=== PATIENT | female | born 1975 | race Caucasian/White ===

== ENCOUNTER → 2018-04-22 | Outpatient (CLI) | payer BC ==
--- NOTE | 2018-04-25 11:17 | MM ---
Reason for exam: screening (asymptomatic). Last mammogram was performed 2 years and 5 months ago. History: Took hormonal contraceptives for 11 years beginning at age 15. Physical Findings: A clinical breast exam by your physician is recommended on an annual basis and results should be correlated with mammographic findings. MG 3D Screening Mammo W/Cad Bilateral CC and MLO view(s) were taken. Prior study comparison: November 28, 2015, bilateral MG screening mammo w CAD. August 06, 2014, bilateral MG screening mammo w CAD. There are scattered fibroglandular densities. No significant changes when compared with prior studies. ASSESSMENT: Benign, BI-RAD 2 RECOMMENDATION: Routine screening mammogram of both breasts in 1 year.
== END | disposition home or self-care (01) ==
LOC: RADMAMWWP 14:38
PROVIDERS: ATTEND Obstetrics & Gynecology
DX: Z12.31 Encounter for screening mammogram for malignant neoplasm of breast (principal)
CPT/HCPCS: 77063; 77067

== ENCOUNTER → 2020-02-14 | Outpatient (CLI) | payer MEDICAID ==
--- NOTE | 2020-02-16 10:27 | MM ---
Reason for exam: screening (asymptomatic). Last mammogram was performed 1 year and 10 months ago. History: Took hormonal contraceptives for 11 years beginning at age 15. Physical Findings: A clinical breast exam by your physician is recommended on an annual basis and results should be correlated with mammographic findings. MG 3D Screening Mammo W/Cad Bilateral CC and MLO view(s) were taken. Prior study comparison: April 22, 2018, bilateral MG 3d screening mammo w/cad. November 28, 2015, bilateral MG screening mammo w CAD. There are scattered fibroglandular densities. Dermal calcifiations upper inner quadrant left breast. No significant changes when compared with prior studies. ASSESSMENT: Negative, BI-RAD 1 RECOMMENDATION: Routine screening mammogram of both breasts in 1 year.
== END | disposition home or self-care (01) ==
LOC: RADMAMWWP 15:26
PROVIDERS: ATTEND Obstetrics & Gynecology
DX: Z12.31 Encounter for screening mammogram for malignant neoplasm of breast (principal)
CPT/HCPCS: 77063; 77067

== ENCOUNTER → 2020-12-31 | Outpatient (CLI) | payer MEDICAID ==
[2020-12-31 08:46] VITALS: BP 110/71; PULSE 60; RESP 16; TEMP 98
--- NOTE | 2020-12-31 09:53 | P.HPOB ---
History of Present Illness H&P Date: 12/31/20 Chief Complaint: The patient is here for her routine gynecologic exam. This is a 45-year-old with an LMP of 12/06/2020 whose is status post vasectomy. The patient is here to establish with this office. She is without gynecologic complaints. Menstrual periods are regular every month. It has been about 1 year since her last pelvic exam. She has experienced some soreness in the left anterior subaxillary region, just lateral of the left breast. This seems to be mostly around the time of her menstrual periods, but can occur any time during the month. Review of Systems The patient's weight has been stable over the last year. She denies respiratory, cardiac, or G.I. problems. 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 - Past Family History Mother Additional Family Medical History / Comment(s): Osteoporosis. Maternal grandmother had an [place]. Father Family Medical History: No Reported History Additional Family Medical History / Comment(s): Paternal grandmother had CVA. Medications and Allergies Home Medications Medication Instructions Recorded Confirmed Type No Known Home Medications 09/29/15 09/29/15 History Allergies Allergy/AdvReac Type Severity Reaction Status Date / Time No Known Allergies Allergy Verified 12/31/20 08:36 Exam Vital Signs Temp Pulse Resp BP Pulse Ox 12/31/20 08:37 98 F 60 16 110/71 99 Intake and Output 12/30/20 12/31/20 12/31/20 22:59 06:59 14:59 Other: Weight 86.636 kg height 5 feet 3 inches, weight 191 pounds, BMI 33.8. This is a well-developed well-nourished female who is alert and oriented times 3 in no acute distress. HEENT: Within normal limits. NECK: Supple without mass or thyromegaly. CHEST AND LUNGS: Clear to auscultation. HEART: Regular rate and rhythm. BREASTS: Are without mass or discharge. AXILLARY EXAM: Negative for adenopathy. There is minimal left anterior subaxillary tenderness without palpable mass. BACK: Negative for CVA tenderness. ABDOMEN: Soft, nontender, without palpable masses. PELVIC EXAM: Normal external genitalia. Cervix and vagina appear normal. There is a small amount of dark blood mixed with small amount of menstrual type blood at the cervix. The patient states she feels like her menstrual period is about to start. There is no unusual discharge. There is no evidence of prolapse. The uterus is midposition, nongravid size and nontender. There are no palpable adnexal masses or tenderness. RECTAL EXAM: negative for mass or tenderness and is negative for occult blood. EXTREMITIES: Nontender. IMPRESSION: 1. 45-year-old female with normal gynecologic exam whose is status post vasectomy. 2. Subaxillary soreness per the patient with minimal tenderness and no evidence of adenopathy. Possible tail of breast soreness. PLAN: 1. Pap smear cotest was performed. 2. Self breast awareness was discussed with the patient. 3. Screening mammogram was done on 02/14/2020 and was benign. She will repeat this after 1 year. The order slip was given to the patient for this. 4. Osteoporosis prevention was discussed. I have stressed the importance of adequate calcium, vitamin D and regular exercise. Recommended amounts of calcium and vitamin D were also discussed. Consider bone density testing in a pproximately age 53 because of her mother's history of osteoporosis. 5. I recommended that she try to decrease caffeine intake since she states she does drink a fair amount of coffee in the morning to see if this helps with her soreness just lateral to the left breast. 6. She has completed her Covid vaccination series. 7. She was advised to return in one year for her annual well woman exam and as needed.
== END ==
LOC: WWCWWP 08:29
PROVIDERS: ATTEND Obstetrics & Gynecology
DX: Z01.419 Encounter for gynecological examination (general) (routine) without abnormal findings (principal); N64.4 Mastodynia; E78.5 Hyperlipidemia, unspecified

== ENCOUNTER → 2021-05-14 | Outpatient (CLI) | payer MEDICAID ==
--- NOTE | 2021-05-16 10:45 | MM ---
Reason for exam: screening (asymptomatic). Last mammogram was performed 1 year and 3 months ago. History: Took hormonal contraceptives for 11 years beginning at age 15. Physical Findings: A clinical breast exam by your physician is recommended on an annual basis and results should be correlated with mammographic findings. MG 3D Screening Mammo W/Cad Bilateral CC and MLO view(s) were taken. Prior study comparison: February 14, 2020, bilateral MG 3d screening mammo w/cad. April 22, 2018, bilateral MG 3d screening mammo w/cad. There are scattered fibroglandular densities. Stable benign calcifications. There is no discrete abnormality. No significant changes when compared with prior studies. ASSESSMENT: Benign, BI-RAD 2 RECOMMENDATION: Routine screening mammogram of both breasts in 1 year.
== END | disposition home or self-care (01) ==
LOC: RADMAMWWP 15:37
PROVIDERS: ATTEND Obstetrics & Gynecology
DX: Z12.31 Encounter for screening mammogram for malignant neoplasm of breast (principal)
CPT/HCPCS: 77063; 77067

== ENCOUNTER → 2021-06-16 | Outpatient (CLI) | payer MEDICAID, OTHER | END | disposition home or self-care (01) | LOC: LABWHC1 08:21 | PROVIDERS: ATTEND Emergency Medicine | DX: Z20.822 Contact with and (suspected) exposure to COVID-19 (principal) | CPT/HCPCS: 87635 ==

== ENCOUNTER → 2022-02-17 | Outpatient (CLI) | payer MEDICAID ==
[2022-02-18 07:31] VITALS: BP 125/87; PULSE 59; RESP 17; TEMP 98.9
--- NOTE | 2022-02-18 07:47 | WWHP ---
[facility] - HISTORY AND PHYSICAL CHIEF COMPLAINT: The patient is here for her routine gynecologic exam. HISTORY OF PRESENT ILLNESS: This is a 46-year-old, G2, P2, with an LMP of 01/20/2022. Her is status post vasectomy. She states she has had some occasional menstrual irregularity over the past year. Most of her periods were about monthly, but she had no menstrual period in June and in January. She did have some spotting later in the month for 5 days. She is otherwise without complaints and denies hot flashes. PAST MEDICAL HISTORY: Hyperlipidemia. MEDICATIONS: None. ALLERGIES: No known drug allergies. PAST SURGICAL HISTORY: None. SOCIAL HISTORY: She denies tobacco and drug use. She socially drinks alcohol, typically about 3 to 4 drinks per week. 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 REVIEW OF SYSTEMS: She has gained about 16 pounds over the past year. She denies respiratory, cardiac or GI problems. FAMILY HISTORY: Unchanged from the 12/31/2020 H and P. PHYSICAL EXAMINATION: VITAL SIGNS: Blood pressure 125/81, height 5 feet 3 inches, weight 205 pounds, BMI 36, temperature 98.9, pulse 59, and pulse oximeter 97%. GENERAL: This is a well-developed, well-nourished female, who is alert and oriented x3, in no acute distress. HEENT: Within normal limits. NECK: Supple without mass or thyromegaly. CHEST AND LUNGS: Clear to auscultation. HEART: Regular rate and rhythm. BREASTS: Without mass or discharge. There is mild left lateral breast tenderness. AXILLARY: Negative for adenopathy. There is minimal left anterior axillary tenderness without palpable masses. BACK: Negative for CVA tenderness. ABDOMEN: Soft, nontender, without palpable masses. PELVIC: Normal external genitalia. Cervix and vagina appear normal. There is no unusual discharge. The uterus is mid position, nongravid size and nontender. There are no palpable adnexal masses or tenderness. RECTAL: Negative for mass or tenderness and is negative for occult blood. EXTREMITIES: Nontender. IMPRESSION: 1. A 46-year-old nida-menopausal female with slight menstrual irregularity and normal gynecologic exam. 2. The patient's is status post vasectomy. PLAN: 1. Pap smear was deferred since she had a negative Pap smear cotest on 12/31/2020 per the patient. The computer system is currently down and I was unable to confirm the normal Pap smear cotest. 2. Self breast examination was discussed. We have also discussed the symptoms associated with inflammatory breast cancer. 3. Mammogram will be due in February of this year and the order slip was given to the patient for this. 4. The patient will keep a menstrual calendar and call if menstrual irregularity. 5. She has completed her COVID vaccination series and did receive 1 booster. 6. The patient will return in 1 year and as needed. MMODL / IJN: [id number] /
== END ==
LOC: WWCWWP 21:52
PROVIDERS: ATTEND Obstetrics & Gynecology
DX: Z53.9 Procedure and treatment not carried out, unspecified reason (principal)

== ENCOUNTER → 2022-09-21 | Outpatient (CLI) | payer MEDICAID ==
[2022-09-21 16:25] LABS: Chol/HDL Ratio 6.06 Ratio; Glucose 93 mg/dL (70-110); LDL Cholesterol,Calculated 129.5 mg/dL (0.0-131.0)
== END | disposition home or self-care (01) ==
LOC: LABWHC1 08:07
PROVIDERS: ATTEND Family Medicine
DX: Z00.00 Encounter for general adult medical examination without abnormal findings (principal)
CPT/HCPCS: 36415; 80061; 82947

== ENCOUNTER → 2023-12-23 | Outpatient (CLI) | payer MEDICAID ==
[2023-12-23 15:04] LABS: Basophils # (A) 0.06 X 10*3/uL (0.00-0.10); Basophils % (A) 0.8 %; Eosinophils # (A) 0.29 X 10*3/uL (0.04-0.35); Eosinophils % (A) 3.9 %; HCT 39.8 % (37.2-46.3); HGB 12.4 g/dL (12.0-15.0); Lymphocytes # (A) 2.64 X 10*3/uL (0.90-5.00); Lymphocytes % (A) 35.2 %; MCH 26.5 pg (27.0-32.0); MCHC 31.2 g/dL (32.0-37.0); Mean Platelet Volume 9.9 FL (9.5-12.2); Monocytes # (A) 0.43 X 10*3/uL (0.20-1.00); Monocytes % (A) 5.7 %; NRBC Per 100 WBC 0 X 10*3/uL (0.00-0.01); Neutrophils # (A) 4.03 X 10*3/uL (1.80-7.70); Neutrophils % (A) 53.9 %; Platelet Count 398 X 10*3/uL (140-440); RBC 4.68 X 10*6/uL (4.10-5.20); WBC 7.49 X 10*3/uL (4.50-10.00)
[2023-12-23 15:20] LABS: Chol/HDL Ratio 7.54 Ratio
[2023-12-23 15:21] LABS: ALT 32 U/L (8-44); AST 28 U/L (13-35); Albumin 4.7 g/dL (3.8-4.9); Albumin/Globulin Ratio 1.57 Ratio (1.60-3.17); Alkaline Phosphatase 78 U/L (41-126); BUN/Creat Ratio 15.57 Ratio (12.00-20.00); Blood Urea Nitrogen 10.9 mg/dL (9.0-27.0); Calcium 9.7 mg/dL (8.7-10.3); Carbon Dioxide 25.3 mmol/L (21.6-31.8); Chloride 104 mmol/L (96-109); Glucose 92 mg/dL (70-110); LDL Cholesterol,Calculated 238.7 mg/dL (0.0-131.0); Potassium 4.7 mmol/L (3.5-5.5); Sodium 141 mmol/L (135-145); Total Bilirubin <0.2 mg/dL (0.3-1.2); Total Protein 7.7 g/dL (6.2-8.2)
== END | disposition home or self-care (01) ==
LOC: LABWHC1 07:06
PROVIDERS: ATTEND Family Medicine
DX: Z00.00 Encounter for general adult medical examination without abnormal findings (principal)
CPT/HCPCS: 36415; 80053; 80061; 85025

== ENCOUNTER → 2023-12-28 | Outpatient (CLI) | payer MEDICAID ==
[2023-12-28 21:13] LABS: % Iron Saturation 6.36 (12.00-45.00); Ferritin 11.2 ng/mL (10.0-291.0)
== END | disposition home or self-care (01) ==
LOC: LABWHC1 15:57
PROVIDERS: ATTEND Family Medicine
DX: R71.8 Other abnormality of red blood cells (principal)
CPT/HCPCS: 36415; 82306; 82607; 82728; 82746; 83540; 83550; 84466

== ENCOUNTER → 2024-10-31 | Outpatient (CLI) | payer MEDICAID ==
[2024-10-31 10:58] VITALS: BP 123/84; PULSE 58; RESP 16; TEMP 99
--- NOTE | 2024-10-31 11:34 | P.HPOB ---
History of Present Illness H&P Date: 10/31/24 Chief Complaint: The patient is here for her routine gynecologic exam and ma mmogram. This is a 49-year-old G2, P2 with an LMP of October 2024. Patient's is status post vasectomy. She has had some menstrual irregularity this year and thinks she is perimenopausal. Her menstrual periods were fairly regular every month until May 2024. She did have a menstrual period in May, but did not have another menstrual period until August 2024. In September she had a very short in late menstrual period and had a fairly normal menstrual period in October 2024. She has been experiencing occasional hot flashes and night sweats. Review of Systems The patient has gained 3 pounds over the last year. She denies respiratory, cardiac, or G.I. problems. She has been feeling less energetic. 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 - Past Family History Mother Additional Family Medical History / Comment(s): Osteoporosis. Maternal grandmother had an [place]. Father Family Medical History: No Reported History Additional Family Medical History / Comment(s): Paternal grandmother had CVA. Medications and Allergies Home Medications Medication Instructions Recorded Confirmed Type Multivitamin [Multivitamins Adult 1 tab PO DAILY 02/18/22 10/31/24 History Gummies] Allergies Allergy/AdvReac Type Severity Reaction Status Date / Time No Known Allergies Allergy Verified 08/17/23 09:27 Exam Vital Signs Temp Pulse Resp BP Pulse Ox 10/31/24 10:49 99.0 F 58 L 16 123/84 100 Intake and Output 10/30/24 10/31/24 10/31/24 22:59 06:59 14:59 Other: Weight 92.079 kg Height 5 feet 3 inches, weight 203 pounds, BMI 36.0 This is a well-developed well-nourished female who is alert and oriented times 3 in no acute distress. HEENT: Within normal limits. NECK: Supple without mass or thyromegaly. CHEST AND LUNGS: Clear to auscultation. HEART: Regular rate and rhythm. BREASTS: Are without mass or discharge. AXILLARY EXAM: Negative for adenopathy. BACK: Negative for CVA tenderness. ABDOMEN: Soft, nontender, without palpable masses. PELVIC EXAM: Normal external genitalia. Cervix and vagina appear normal. There is no unusual discharge. There is no evidence of prolapse. The uterus is midposition, nongravid size and nontender. There are no palpable adnexal masses or tenderness. RECTAL EXAM: Rectovaginal exam is negative for mass or tenderness and is negative for occult blood. EXTREMITIES: Nontender. IMPRESSION: 1. 49-year-old perimenopausal female with recent oligomenorrhea and menstrual irregularity with mild vasomotor symptoms. 2. Normal gynecologic exam PLAN: 1. Pap smear was deferred since she had a negative Pap smear cotest on 12/31/2020. We will plan on doing the Pap smear cotest again next year. 2. Self breast awareness was discussed with the patient. We have also discussed symptoms associated with inflammatory breast cancer. 3. Screening mammogram will be done today. 4. Osteoporosis prevention was discussed. I have stressed the importance of adequate calcium, vitamin D and regular exercise. Recommended amounts of calcium and vitamin D were also discussed. 5. Will keep a menstrual calendar and call if menstrual problems. 6. Weight control was discussed. I have stressed the importance of good nutrition, regular meals, adequate fiber, and regular exercise. 7. Colorectal cancer screening was discussed. She has done Cologuard testing within the past year through her PCP. She states this was negative. 8. She was advised to return in one year for her annual well woman exam and as needed.
--- NOTE | 2024-10-31 12:18 | MM ---
Reason for Exam: Screening (asymptomatic). Last mammogram was performed 1 year(s) and 2 month(s) ago. Patient History: Menarche at age 11. First Full-Term at age 22. Patient has history of breast feeding. Hormonal Contraceptives for 11 years from age 15 until age 26. Last menstrual period: 10/13/2024 Risk Values: Deirdre 5 year model risk: 0.6%. NCI Lifetime model risk: 5.6%. Prior Study Comparison: 05/14/2021 Bilateral Screening Mammogram, [facility]. 08/12/2022 Bilateral MG 3D screening mammo w/cad, [facility]. 08/17/2023 Bilateral MG 3D screening mammo w/cad, [facility]. Tissue Density: The breasts are heterogeneously dense, which may obscure small masses. Findings: Analyzed By CAD. Right breast: There is no suspicious group of microcalcifications or new suspicious mass. Left breast: There is no suspicious group of microcalcifications or new suspicious mass. Overall Assessment: Negative, BI-RAD 1 Management: Screening Mammogram of both breasts in [address] [facility] will attempt to contact patient to return for supplemental views and ultrasound if indicated. Patient should continue monthly self-breast exams. A clinical breast exam by your physician is recommended on an annual basis. This exam should not preclude additional follow-up of suspicious palpable abnormalities. Note on Deirdre scores and lifetime risk: 1. A Deirdre score greater than 3% is considered moderate risk. If this is the case, consider specialist referral to assess eligibility for a risk reducing agent. 2. If overall lifetime risk for the development of breast cancer is 20% or higher, the patient may qualify for future screening with alternating mammogram and breast MRI. [facility], , 10/31/2024 12:03 PM. Electronically signed and approved by: Paul Morin DO
== END ==
LOC: WWCWWP 10:35
PROVIDERS: ATTEND Obstetrics & Gynecology
DX: Z01.419 Encounter for gynecological examination (general) (routine) without abnormal findings (principal); Z12.31 Encounter for screening mammogram for malignant neoplasm of breast; N91.5 Oligomenorrhea, unspecified; Z78.0 Asymptomatic menopausal state
CPT/HCPCS: 77063; 77067